=== PATIENT | female | born 1990 | race Caucasian/White ===

== ENCOUNTER 2022-12-03 19:00 | Emergency (ER) | payer SELFPAY ==
[2022-12-03] MEDS ORDERED: Ketorolac Tromethamine 30 MG/ML VIAL ONE (20:12)
[2022-12-03] MEDS ORDERED: Ondansetron PF 4 MG/2 ML Vial ONE ×2 (20:13→21:20)
[2022-12-03 20:14] LABS: #Eosinphils 0.2 10x3/uL (0.0-0.5); #Monocytes 0.4 10x3/uL (0.0-1.1); #Neutrophils 3.9 10x3/uL (1.5-8.4); %Basophils 0.5 % (0.0-2.0); %Eosinophils 3.7 % (0.0-6.0); %Lymphocytes 22.1 % (18.0-47.0); %Monocytes 6.1 % (0.0-10.0); %Neutrophils 67.4 % (40.0-75.0); Hemoglobin 10.6 g/dL (12.0-15.5); Mean Corpuscular HGB CONC 32.2 g/dL (32.0-36.0); Mean Corpuscular Hemoglobin 24.9 pg (27.0-33.0); Mean Corpuscular Volume 77.2 fl (81.6-98.3); Mean Platelet Volume 11.3 fl (7.4-10.4); Platelet Count 222 10x3/uL (150-450); RBC Distribution Width 15.2 % (11.5-14.5); Red Blood Cell (RBC) Count 4.26 10x6/uL (3.90-5.03); White Blood Cell (WBC) Count 5.7 10x3/uL (3.5-10.5)
[2022-12-03 20:19] LABS: BHCG - Serum Negative (NEGATIVE); Pregs Control Background? CLEAR/WHITE (CLR/WHITE); Pregs Control Bar Appear? YES (CONTROL BAR)
[2022-12-03 20:25] LABS: ALT (SGPT) 13 U/L (8-55); AST (SGOT) 17 U/L (5-34); Albumin 4.4 g/dL (3.5-5.0); Alkaline Phosphatase 49 U/L (40-110); Anion Gap 12 mmol/L (10-20); BUN (Urea Nitrogen) 7 mg/dL (7.0-18.7); Bilirubin, Total 0.4 mg/dL (0.2-1.2); Calc. Creatinine Clearance 0 mL/min (70-130); Calcium 9.1 mg/dL (7.8-10.44); Carbon Dioxide 23 mmol/L (22-29); Chloride 107 mmol/L (98-107); Estimated GFR 100; Globulin 2.7 g/dL (2.4-3.5); Glucose 93 mg/dL (70-105); Magnesium 1.8 mg/dL (1.6-2.6); Potassium 2.9 mmol/L (3.5-5.1); Protein, Total 7.1 g/dL (6.0-8.3); Sodium 139 mmol/L (136-145)
[2022-12-03 20:40] LABS: Bilirubin Neg (Negative); Blood, Urine 10 (Negative); Clarity Clear (Clear); Glucose, Urine (Dipstick) Normal (Negative); Ketone, Urine Negative (Negative); Leukocyte Negative (Negative); Nitrite Negative (Negative); Protein, Urine (Dipstick) Negative (Neg-Trace); Specific Gravity, Urine 1.005 (1.005-1.030); Urobilinogen Normal mg/dL (Less than 2)
[2022-12-03] MEDS ORDERED: Potassium Chloride 20 MEQ TAB ONE ×2 (20:47→22:00)
[2022-12-03 20:52] LABS: Bacteria/HPF Rare-Few HPF (None Seen); RBC/HPF 0-3 HPF (0-3); Squamous Epithelial 0-3 HPF (0-3); WBC/HPF None Seen HPF (0-3)
[2022-12-03] MEDS ORDERED: Morphine 2 MG/ML VIAL ONE (21:20)
[2022-12-03] MEDS ORDERED: cefTRIAXone\\ROCEPHIN 1 GM VIAL ONE (23:00)
[2022-12-04 21:32] LABS: Chlamydia by PCR Not Detected (NotDetected); GC by PCR Not Detected (NotDetected)
== END 2022-12-04 00:43 | disposition home or self-care (01) ==
LOC: CSHERS 19:00
DX: N73.9 Female pelvic inflammatory disease, unspecified (principal); E87.6 Hypokalemia; F17.210 Nicotine dependence, cigarettes, uncomplicated
CPT/HCPCS: 74176; 80053; 81003; 81015; 83735; 84703; 85025; 87480; 87491; 87510; 87591; 87660; 96361; 96365; 96375; 96376; J0696; J1885; J2272; J2405

== ENCOUNTER 2022-12-07 06:48 | Observation (INO) | payer MEDICAID, OTHER, SELFPAY ==
[2022-12-07] MEDS ORDERED: Ondansetron PF 4 MG/2 ML Vial ONE (07:59)
[2022-12-07] MEDS ORDERED: Ketorolac Tromethamine 30 MG/ML VIAL ONE (08:00)
[2022-12-07 08:19] LABS: #Eosinphils 0.2 10x3/uL (0.0-0.5); #Monocytes 0.3 10x3/uL (0.0-1.1); %Basophils 0.7 % (0.0-2.0); %Eosinophils 3.3 % (0.0-6.0); %Monocytes 6.9 % (0.0-10.0); %Neutrophils 67.9 % (40.0-75.0); BHCG - Serum Negative (NEGATIVE); Hemoglobin 13.3 g/dL (12.0-15.5); Mean Corpuscular HGB CONC 31.6 g/dL (32.0-36.0); Mean Corpuscular Hemoglobin 24.6 pg (27.0-33.0); Mean Platelet Volume 11.2 fl (7.4-10.4); Platelet Count 221 10x3/uL (150-450); Pregs Control Background? CLEAR/WHITE (CLR/WHITE); Pregs Control Bar Appear? YES (CONTROL BAR); RBC Distribution Width 15.6 % (11.5-14.5); White Blood Cell (WBC) Count 4.5 10x3/uL (3.5-10.5)
[2022-12-07 08:24] LABS: ALT (SGPT) 12 U/L (8-55); AST (SGOT) 19 U/L (5-34); Albumin 5.3 g/dL (3.5-5.0); Alkaline Phosphatase 57 U/L (40-110); Anion Gap 15 mmol/L (10-20); BUN (Urea Nitrogen) 9 mg/dL (7.0-18.7); Bilirubin, Total 0.5 mg/dL (0.2-1.2); Calc. Creatinine Clearance 0 mL/min (70-130); Calcium 10.2 mg/dL (7.8-10.44); Carbon Dioxide 22 mmol/L (22-29); Chloride 107 mmol/L (98-107); Estimated GFR 96; Globulin 3.6 g/dL (2.4-3.5); Glucose 90 mg/dL (70-105); Lipase 17 U/L (8-78); Potassium 3.7 mmol/L (3.5-5.1); Protein, Total 8.9 g/dL (6.0-8.3); Sodium 140 mmol/L (136-145)
[2022-12-07 08:33] LABS: Bilirubin Neg (Negative); Blood, Urine 50 (Negative); Clarity Cloudy (Clear); Glucose, Urine (Dipstick) Normal (Negative); Ketone, Urine 15 mg/dL (Negative); Leukocyte 500 (Negative); Nitrite Negative (Negative); Protein, Urine (Dipstick) 30 mg/dl (Neg-Trace); Specific Gravity, Urine 1.015 (1.005-1.030); Urobilinogen Normal mg/dL (Less than 2)
[2022-12-07 09:08] LABS: Bacteria/HPF 3+ HPF (None Seen); Squamous Epithelial Greater than 50 HPF (0-3)
[2022-12-07] MEDS ORDERED: cefOXitin 2 GM in Sodium Chloride 0.9% 100 ML IVPB SCH (10:00)
[2022-12-07] MEDS ORDERED: Doxycycline 100 MG in Sodium Chloride 0.9% 100 ML IVPB SCH (10:00)
[2022-12-07] MEDS ORDERED: cefOXitin Sodium/Dextrose,Iso 2 GM in Premix Bag 1 BAG IVPB SCH (10:00)
[2022-12-07] MEDS ORDERED: Ondansetron PF 4 MG/2 ML Vial IVP PRN (10:32)
[2022-12-07] MEDS ORDERED: HYDROcodone/Acetaminophen 5/325 mg Tablet ONE (10:50)
[2022-12-07 11:00] LABS: Amphetamine Not Detected (NotDetected); Barbiturates Screen Not Detected (NotDetected); Benzodiazepine Screen Not Detected (NotDetected); Cocaine Metabolite Screen Not Detected (NotDetected); Methadone Not Detected (NotDetected); Methamphetamine Not Detected (NotDetected); Opiate Screen Not Detected (NotDetected); Oxycodone Screen Not Detected (NotDetected); Phencyclidine (PCP) Not Detected (NotDetected); THC/Cannabinoid Screen Not Detected (NotDetected); Tricyclic Screen Not Detected (NotDetected)
[2022-12-07] MEDS ORDERED: Morphine 2 MG/ML VIAL SLOW IVP SCH (11:15)
[2022-12-07] MEDS: Sodium Chloride 0.9% 1,000 ML IV SCH (11:38)
[2022-12-07 11:57] VITALS: BMI 20.8
[2022-12-07] MEDS ORDERED: Acetaminophen 325 MG TAB PO PRN (12:45)
[2022-12-07] MEDS: Nicotine 14 MG PATCH TD SCH (12:53)
[2022-12-07 12:57] LABS: SARS-CoV-2 NAA Rapid Test Not Detected (NotDetected)
[2022-12-07] MEDS ORDERED: HYDROcodone/Acetaminophen 5/325 mg Tablet PO PRN (16:03)
[2022-12-07] MEDS: HYDROcodone/Acetaminophen 5/325 mg Tablet PO PRN ×2 (17:08→21:29)
[2022-12-07] MEDS: Ondansetron PF 4 MG/2 ML Vial IVP PRN ×2 (17:09→21:29)
[2022-12-07] MEDS: Doxycycline 100 MG in Sodium Chloride 0.9% 100 ML IVPB SCH (21:32)
[2022-12-08] MEDS: Sodium Chloride 0.9% 1,000 ML IV SCH (01:55)
[2022-12-08] MEDS: HYDROcodone/Acetaminophen 5/325 mg Tablet PO PRN ×4 (01:55→22:21)
[2022-12-08] MEDS: Ondansetron PF 4 MG/2 ML Vial IVP PRN ×3 (01:56→13:49)
[2022-12-08 06:24] LABS: #Eosinphils 0.2 10x3/uL (0.0-0.5); #Monocytes 0.3 10x3/uL (0.0-1.1); #Neutrophils 1.8 10x3/uL (1.5-8.4); %Basophils 0.8 % (0.0-2.0); %Eosinophils 5.1 % (0.0-6.0); %Neutrophils 48.8 % (40.0-75.0); Hemoglobin 10.3 g/dL (12.0-15.5); Mean Corpuscular HGB CONC 31.4 g/dL (32.0-36.0); Mean Corpuscular Hemoglobin 24.6 pg (27.0-33.0); Mean Corpuscular Volume 78.5 fl (81.6-98.3); Mean Platelet Volume 12.3 fl (7.4-10.4); Platelet Count 165 10x3/uL (150-450); RBC Distribution Width 15.2 % (11.5-14.5); Red Blood Cell (RBC) Count 4.18 10x6/uL (3.90-5.03); White Blood Cell (WBC) Count 3.7 10x3/uL (3.5-10.5)
[2022-12-08 06:30] LABS: Anion Gap 12 mmol/L (10-20); BUN (Urea Nitrogen) 10 mg/dL (7.0-18.7); Calc. Creatinine Clearance 87 mL/min (70-130); Calcium 8.4 mg/dL (7.8-10.44); Carbon Dioxide 20 mmol/L (22-29); Chloride 111 mmol/L (98-107); Estimated GFR 106; Glucose 92 mg/dL (70-105); Sodium 139 mmol/L (136-145)
[2022-12-08 06:46] LABS: Syphilis Antibody Nonreactive (Nonreactive); Syphilis Antibody Index 0.04 S/CO (<1.00 Non-Reactive)
[2022-12-08] MEDS: Doxycycline 100 MG in Sodium Chloride 0.9% 100 ML IVPB SCH (08:44)
[2022-12-08] MEDS ORDERED: Doxycycline 100 MG in Sodium Chloride 0.9% 100 ML IVPB SCH (09:00)
[2022-12-08] MEDS ORDERED: FLU VACC QS2022-23(6MOS UP)/PF 60 MCG/0.5 ML SYRINGE IM ONE (09:00)
[2022-12-08] MEDS ORDERED: Ibuprofen 400 MG TAB PO PRN (10:21)
[2022-12-08] MEDS ORDERED: diphenhydrAMINE 25 MG CAP PO PRN (10:22)
[2022-12-08] MEDS ORDERED: Loperamide HCl 2 MG CAP PO PRN ×2 (10:22)
[2022-12-08] MEDS ORDERED: Artificial Tear Sol 15 ML BOT EA EYE PRN (10:22)
[2022-12-08] MEDS ORDERED: Calcium Carbonate 500 MG ChewTAB PO PRN (10:22)
[2022-12-08] MEDS ORDERED: Diphenoxylate HCl/Atropine Tablet PO PRN (10:22)
[2022-12-08] MEDS ORDERED: Moisturizing Cream (Eucerin) 113 GM JAR TOP PRN (10:22)
[2022-12-08] MEDS ORDERED: Acetaminophen 325 MG TAB PO PRN (10:27)
[2022-12-08] MEDS ORDERED: metroNIDAZOLE 500 MG in Premix Bag 1 BAG IVPB SCH (10:30)
[2022-12-08] MEDS: Lactated Ringer's 1,000 ML IV SCH ×2 (12:20→18:10)
[2022-12-08] MEDS: Nicotine 14 MG PATCH TD SCH (12:32)
[2022-12-08] MEDS ORDERED: cefTRIAXone\\ROCEPHIN 1 GM in Sodium Chloride 0.9% 100 ML IVPB SCH (13:00)
[2022-12-08] MEDS: metroNIDAZOLE 500 MG TAB PO SCH ×2 (15:12→21:33)
[2022-12-08] MEDS: Ibuprofen 800 MG TAB PO PRN ×2 (17:44→22:21)
[2022-12-08] MEDS: Ondansetron ODT 4 MG TAB PO PRN (17:59)
[2022-12-08] MEDS: Doxycycline 100 MG CAP PO SCH (21:33)
[2022-12-09] MEDS: Ondansetron ODT 4 MG TAB PO PRN ×2 (00:04→08:43)
[2022-12-09] MEDS: Ibuprofen 800 MG TAB PO PRN ×2 (04:30→08:42)
[2022-12-09] MEDS: HYDROcodone/Acetaminophen 5/325 mg Tablet PO PRN ×2 (04:30→08:42)
[2022-12-09 05:23] LABS: #Eosinphils 0.2 10x3/uL (0.0-0.5); #Monocytes 0.3 10x3/uL (0.0-1.1); #Neutrophils 3.2 10x3/uL (1.5-8.4); %Basophils 0.8 % (0.0-2.0); %Eosinophils 4.5 % (0.0-6.0); %Monocytes 6.6 % (0.0-10.0); %Neutrophils 65.1 % (40.0-75.0); Hemoglobin 10.8 g/dL (12.0-15.5); Mean Corpuscular HGB CONC 31.4 g/dL (32.0-36.0); Mean Corpuscular Hemoglobin 24.8 pg (27.0-33.0); Mean Corpuscular Volume 78.9 fl (81.6-98.3); Mean Platelet Volume 11.4 fl (7.4-10.4); Platelet Count 156 10x3/uL (150-450); Red Blood Cell (RBC) Count 4.36 10x6/uL (3.90-5.03); White Blood Cell (WBC) Count 4.9 10x3/uL (3.5-10.5)
[2022-12-09 05:33] LABS: Anion Gap 15 mmol/L (10-20); BUN (Urea Nitrogen) 11 mg/dL (7.0-18.7); Calc. Creatinine Clearance 79 mL/min (70-130); Calcium 8.7 mg/dL (7.8-10.44); Carbon Dioxide 19 mmol/L (22-29); Chloride 109 mmol/L (98-107); Estimated GFR 94; Glucose 89 mg/dL (70-105); Potassium 4.5 mmol/L (3.5-5.1); Sodium 138 mmol/L (136-145)
[2022-12-09 05:50] LABS: HIV (1/2) Antibody/Antigen Non-Reactive (NonReactive); HIV 1/2 INDEX 0.12 S/CO (<1.00)
[2022-12-09 08:27] VITALS: BP 116/73; TEMP 98.2
[2022-12-09] MEDS: metroNIDAZOLE 500 MG TAB PO SCH (09:57)
[2022-12-09] MEDS: Doxycycline 100 MG CAP PO SCH (09:57)
[2022-12-09 21:27] LABS: Chlam.trachomatis by PCR,Urine Not Detected (NotDetected); GC N.gonorrhoeae PCR,UrineVOID Not Detected (NotDetected)
== END 2022-12-09 10:55 | disposition home or self-care (01) ==
LOC: CSHERS 06:48 → CSHPP 11:35
PROVIDERS: ADMIT Family Medicine; ATTEND Family Medicine
DX: N73.9 Female pelvic inflammatory disease, unspecified (principal); N76.0 Acute vaginitis; B96.89 Other specified bacterial agents as the cause of diseases classified elsewhere; R30.0 Dysuria; Z20.822 Contact with and (suspected) exposure to COVID-19; E86.0 Dehydration; Z79.899 Other long term (current) drug therapy; F17.210 Nicotine dependence, cigarettes, uncomplicated
CPT/HCPCS: 36415; 80048; 80053; 80306; 81003; 81015; 83605; 83690; 84703; 85025; 86780; 87086; 87389; 87491; 87591; 94760; 96361; 96365; 96366; 96375; 96376; G0378; J0694; J0696; J1885; J2272; J2405; J3490; J7050; J7120; Q0162; U0002

== ENCOUNTER 2024-04-17 12:08 | Emergency (ER) | payer MEDICAID, SELFPAY ==
[2024-04-17 13:05] LABS: #Basophils 0.05 10x3/uL (0.0-0.2); #Eosinphils 0.21 10x3/uL (0.0-0.5); #Monocytes 0.53 10x3/uL (0.0-1.1); #Neutrophils 4.32 10x3/uL (1.5-8.4); %Basophils 0.8 % (0.0-2.0); %Eosinophils 3.3 % (0.0-6.0); %Lymphocytes 18.6 % (18.0-47.0); %Monocytes 8.4 % (0.0-10.0); %Neutrophils 68.6 % (40.0-75.0); Hematocrit 37.6 % (34.9-44.5); Hemoglobin 12.8 g/dL (12.0-15.5); Mean Corpuscular Volume 85.1 fL (81.6-98.3); Mean Platelet Volume 11.2 fL (7.4-10.4); Platelet Count 185 10x3/uL (150-450); RBC Distribution Width 12.9 % (11.5-14.5); Red Blood Cell (RBC) Count 4.42 10x6/uL (3.90-5.03); White Blood Cell (WBC) Count 6.3 10x3/uL (3.5-10.5)
[2024-04-17] MEDS ORDERED: Ketorolac Tromethamine 30 MG (1 mL) VIAL ONE (13:09)
[2024-04-17] MEDS ORDERED: Ondansetron PF 4 MG/2 ML Vial ONE (13:09)
[2024-04-17] MEDS ORDERED: fentaNYL 50 mcg/mL 1 mL Vial ONE (13:09)
[2024-04-17 13:17] LABS: BHCG - Serum Negative (NEGATIVE); Pregs Control Background? CLEAR/WHITE (CLR/WHITE); Pregs Control Bar Appear? YES (CONTROL BAR)
[2024-04-17 13:19] LABS: ALT (SGPT) 8 U/L (8-55); AST (SGOT) 16 U/L (5-34); Albumin 4.1 g/dL (3.5-5.0); Alkaline Phosphatase 48 U/L (40-110); Anion Gap 11 mmol/L (10-20); BUN (Urea Nitrogen) 15 mg/dL (7.0-18.7); Bilirubin, Total 0.3 mg/dL (0.2-1.2); Calc. Creatinine Clearance 0 mL/min (70-130); Carbon Dioxide 23 mmol/L (22-29); Chloride 107 mmol/L (98-107); Estimated GFR 78; Globulin 2.9 g/dL (2.4-3.5); Glucose 93 mg/dL (70-105); Potassium 4.1 mmol/L (3.5-5.1); Sodium 137 mmol/L (136-145)
[2024-04-17 13:34] LABS: Bilirubin Neg (Negative); Blood, Urine 10 (Negative); Glucose, Urine (Dipstick) Normal (Negative); Ketone, Urine Negative (Negative); Leukocyte Negative (Negative); Nitrite Negative (Negative); Protein, Urine (Dipstick) Negative (Neg-Trace); Urobilinogen Normal mg/dL (Less than 2)
[2024-04-17 13:35] LABS: Clarity Clear (Clear); Pregnancy Test - Urine (BHCG) Negative (Negative); Pregu Control Bar Appear? YES (CONTROL BAR)
[2024-04-17 13:36] LABS: Pregu Control Background? CLEAR/WHITE (CLR/WHITE)
[2024-04-17 13:43] LABS: Bacteria/HPF 1+ HPF (None Seen); CAUTI Indications for Culture Pelvic or flank pain; RBC/HPF 0-3 HPF (0-3); Squamous Epithelial 0-3 HPF (0-3); WBC/HPF 0-3 HPF (0-3)
[2024-04-17 13:44] LABS: Urine Culture Reflex No No
[2024-04-17 14:30] LABS: Amphetamine Not Detected (NotDetected); Barbiturates Screen Not Detected (NotDetected); Benzodiazepine Screen Not Detected (NotDetected); Cocaine Metabolite Screen Not Detected (NotDetected); Methadone Not Detected (NotDetected); Methamphetamine Not Detected (NotDetected); Opiate Screen Not Detected (NotDetected); Oxycodone Screen Not Detected (NotDetected); Phencyclidine (PCP) Not Detected (NotDetected); THC/Cannabinoid Screen Not Detected (NotDetected); Tricyclic Screen Not Detected (NotDetected)
== END 2024-04-17 15:00 | disposition home or self-care (01) ==
LOC: CSHERS 12:08
DX: R10.0 Acute abdomen (principal)
CPT/HCPCS: 36416; 74176; 80053; 80306; 81001; 81025; 83690; 84703; 85025; 96374; 96375; J1885; J2405; J3010

== ENCOUNTER 2024-05-12 08:26 | Emergency (ER) | payer SELFPAY ==
[2024-05-12] MEDS ORDERED: Ketorolac Tromethamine 30 MG (1 mL) VIAL ONE ×2 (09:19→10:48)
[2024-05-12] MEDS ORDERED: Dexamethasone 10 MG/ML VIAL ONE (09:21)
[2024-05-12] MEDS ORDERED: Ipratropium/Albuterol 3 ML NEB ONE (09:24)
[2024-05-12 09:49] LABS: SARS-CoV-2 E Target Negative; SARS-CoV-2 N2 Target Negative; SARS-CoV-2 NAA Rapid Test Not Detected (NotDetected); SARS-CoV-2 RdRP gene Negative
[2024-05-12] MEDS ORDERED: Acetaminophen 500 MG TAB ONE (10:48)
== END 2024-05-12 11:17 | disposition home or self-care (01) ==
LOC: CSHERS 08:26
DX: J20.9 Acute bronchitis, unspecified (principal); J02.8 Acute pharyngitis due to other specified organisms; F17.210 Nicotine dependence, cigarettes, uncomplicated
CPT/HCPCS: 71045; 96372; J1100; J1885; J7620; U0002

== ENCOUNTER 2024-11-05 16:26 | Emergency (ER) | payer OTHER, SELFPAY ==
[2024-11-05] MEDS ORDERED: Bupivacaine PF 0.5% 30 ML VIAL ONE (16:44)
== END 2024-11-05 17:30 | disposition home or self-care (01) ==
LOC: CSHERS 16:26
DX: O99.612 Diseases of the digestive system complicating pregnancy, second trimester (principal); K04.7 Periapical abscess without sinus; K08.89 Other specified disorders of teeth and supporting structures; Z3A.24 24 weeks gestation of pregnancy
CPT/HCPCS: 64400; 99282; J0665